=== PATIENT | female | born 1980 | race Caucasian/White ===

== ENCOUNTER 2017-12-11 14:40 | Inpatient (IN) | payer OTHER ==
[~2017-12-11] VITALS: Ht 160 cm; Wt 100.0 kg
[2017-12-11 15:13] LABS: BASOPHIL % 0.1 % (0-2); PLATELET COUNT 323 x10^3mcL (130-400); RED CELL DISTRIBUTION WIDTH 14.2 % (11.5-14.5)
[2017-12-11 15:25] LABS: CALCIUM 8.9 mg/dL (8.5-10.1); CARBON DIOXIDE 23.9 mmol/L (21-32); CHLORIDE SERUM 101 mmol/L (98-107); CREATININE SERUM 0.8 mg/dL (0.6-1.0); GFR1 > 60 mL/min; GLUCOSE SERUM 124 mg/dL (74-106); POTASSIUM SERUM 3.4 mmol/L (3.5-5.1); SODIUM SERUM 135 mmol/L (136-145)
[2017-12-11 15:31] LABS: ALKALINE PHOSPHATASE 174 U/L (46-116); ALT/SGPT 191 U/L (14-59); AST/SGOT 121 U/L (15-37); BILIRUBIN TOTAL 3.5 mg/dL (0.20-1.00); TOTAL PROTEIN, SERUM 7.8 g/dL (6.4-8.2)
[2017-12-11 15:32] LABS: ALBUMIN 3.2 g/dL (3.4-5.0)
[2017-12-11 16:31] LABS: LIPASE 18392 IU/L (73-393)
[2017-12-11] MEDS ORDERED: PROTONIX20 MG (16:56)
[2017-12-11] MEDS ORDERED: HCTZ/LISINOPRIL1 TAB (16:58)
[2017-12-11 17:28] LABS: MAGNESIUM 2.3 mg/dL (1.8-2.4); PHOSPHOROUS 2.9 mg/dL (2.5-4.9)
[2017-12-11 17:29] LABS: CHOLESTEROL/HDL RATIO 6.4
[2017-12-11 17:49] LABS: T3 TOTAL 1.97 ng/mL
[2017-12-11 17:53] LABS: FREE T4 1.17 ng/dL (0.76-1.46); FREE THYROXINE INDEX 3.4 ug/dL (1.4-4.5)
[2017-12-11 18:26] VITALS: BP 177/110
[2017-12-11 20:40] VITALS: BP 142/88
[2017-12-12] VITALS (7 sets, daily range): BP systolic 113–193; BP diastolic 72–118
[2017-12-12 00:23] LABS: UA SPECIFIC GRAVITY 1.025 (1.005-1.035); microscopic required? YES; urine erythrocyte 1+ (NEGATIVE)
[2017-12-12 06:23] LABS: BASOPHIL % 0.4 % (0-2); PLATELET COUNT 332 x10^3mcL (130-400)
[2017-12-12 06:54] LABS: ALKALINE PHOSPHATASE 204 U/L (46-116); ALT/SGPT 223 U/L (14-59); AST/SGOT 145 U/L (15-37); BILIRUBIN TOTAL 6.3 mg/dL (0.20-1.00); CALCIUM 8.6 mg/dL (8.5-10.1); CARBON DIOXIDE 22.1 mmol/L (21-32); CHLORIDE SERUM 98 mmol/L (98-107); CREATININE SERUM 0.7 mg/dL (0.6-1.0); GFR1 > 60 mL/min; GLUCOSE SERUM 201 mg/dL (74-106); MAGNESIUM 2.4 mg/dL (1.8-2.4); PHOSPHOROUS 2.3 mg/dL (2.5-4.9); POTASSIUM SERUM 3.1 mmol/L (3.5-5.1); SODIUM SERUM 133 mmol/L (136-145)
[2017-12-12 07:04] LABS: RED CELL DISTRIBUTION WIDTH 14.8 % (11.5-14.5)
[2017-12-12 07:14] LABS: ALBUMIN 3.2 g/dL (3.4-5.0)
[2017-12-12 07:35] LABS: LIPASE 7021 IU/L (73-393)
[2017-12-13 05:27] VITALS: BP 118/74
[2017-12-13 06:37] LABS: ALKALINE PHOSPHATASE 242 U/L (46-116); ALT/SGPT 177 U/L (14-59); AST/SGOT 99 U/L (15-37); BILIRUBIN TOTAL 6.58 mg/dL (0.20-1.00); CALCIUM 8.2 mg/dL (8.5-10.1); CARBON DIOXIDE 20.3 mmol/L (21-32); CHLORIDE SERUM 102 mmol/L (98-107); CREATININE SERUM 0.8 mg/dL (0.6-1.0); GFR1 > 60 mL/min; GLUCOSE SERUM 110 mg/dL (74-106); LACTIC DEHYDROGENASE (LDH) 165 U/L (100-190); MAGNESIUM 2.1 mg/dL (1.8-2.4); PHOSPHOROUS 1.9 mg/dL (2.5-4.9); SODIUM SERUM 139 mmol/L (136-145); TOTAL PROTEIN, SERUM 6.9 g/dL (6.4-8.2)
[2017-12-13 06:56] LABS: ALBUMIN 2.6 g/dL (3.4-5.0)
[2017-12-13 06:57] LABS: POTASSIUM SERUM 2.9 mmol/L (3.5-5.1)
[2017-12-13 07:18] LABS: BASOPHIL % 0 % (0-2); PLATELET COUNT 323 x10^3mcL (130-400); RED CELL DISTRIBUTION WIDTH 14.8 % (11.5-14.5)
[2017-12-13 09:40] VITALS: BP 148/79
[2017-12-13 09:51] LABS: CALCIUM 8.7 mg/dL (8.5-10.1); CARBON DIOXIDE 24.4 mmol/L (21-32); CHLORIDE SERUM 98 mmol/L (98-107); GFR1 > 60 mL/min; GLUCOSE SERUM 115 mg/dL (74-106); POTASSIUM SERUM 3.2 mmol/L (3.5-5.1); SODIUM SERUM 134 mmol/L (136-145)
[2017-12-13 15:33] VITALS: BP 144/81
[2017-12-13 17:15] VITALS: BP 148/93
[2017-12-13 20:21] VITALS: BP 140/86
[2017-12-14 05:56] VITALS: BP 158/89
[2017-12-14 06:38] LABS: ALKALINE PHOSPHATASE 279 U/L (46-116); ALT/SGPT 148 U/L (14-59); AST/SGOT 91 U/L (15-37); BILIRUBIN TOTAL 4.94 mg/dL (0.20-1.00); CALCIUM 8.3 mg/dL (8.5-10.1); CARBON DIOXIDE 26.3 mmol/L (21-32); CHLORIDE SERUM 104 mmol/L (98-107); CREATININE SERUM 0.7 mg/dL (0.6-1.0); GFR1 > 60 mL/min; GLUCOSE SERUM 118 mg/dL (74-106); MAGNESIUM 1.9 mg/dL (1.8-2.4); PHOSPHOROUS 1.4 mg/dL (2.5-4.9); SODIUM SERUM 141 mmol/L (136-145); TOTAL PROTEIN, SERUM 6.8 g/dL (6.4-8.2)
[2017-12-14 06:41] LABS: ALBUMIN 2.4 g/dL (3.4-5.0); POTASSIUM SERUM 2.9 mmol/L (3.5-5.1)
[2017-12-14 07:03] LABS: PLATELET COUNT 319 x10^3mcL (130-400)
[2017-12-14 07:17] LABS: LIPASE 3841 IU/L (73-393)
[2017-12-14 07:48] LABS: RED CELL DISTRIBUTION WIDTH 15.2 % (11.5-14.5)
[2017-12-14 08:59] VITALS: BP 163/105
[2017-12-14] MEDS ORDERED: HYZAAR1 TAB PO (09:50)
[2017-12-14] MEDS ORDERED: LOSARTAN POTASS1 TAB PO (09:54)
[2017-12-14 13:33] LABS: MONOCYTE 9 % (0-7); PLATELET MORPHOLOGY PLATELETS NORMAL; SEGMENTED NEUTROPHILS 74 % (37-75); rbc morphology (normal/abnorm) NORMAL (NORMAL)
[2017-12-14 17:11] VITALS: BP 160/104
[2017-12-14 21:11] VITALS: BP 134/94
[2017-12-14 21:48] VITALS: BP 145/94
[2017-12-15 06:05] VITALS: BP 152/103
[2017-12-15 06:30] LABS: BASOPHIL % 0.4 % (0-2); PLATELET COUNT 340 x10^3mcL (130-400)
[2017-12-15 06:53] LABS: RED CELL DISTRIBUTION WIDTH 15.2 % (11.5-14.5)
[2017-12-15 07:25] LABS: ALKALINE PHOSPHATASE 278 U/L (46-116); ALT/SGPT 129 U/L (14-59); AST/SGOT 68 U/L (15-37); BILIRUBIN DIRECT 1.04 mg/dL (0.0-0.2); BILIRUBIN TOTAL 2.43 mg/dL (0.20-1.00); CALCIUM 8.5 mg/dL (8.5-10.1); CARBON DIOXIDE 24.6 mmol/L (21-32); CHLORIDE SERUM 102 mmol/L (98-107); CREATININE SERUM 0.7 mg/dL (0.6-1.0); GFR1 > 60 mL/min; GLUCOSE SERUM 95 mg/dL (74-106); POTASSIUM SERUM 3.3 mmol/L (3.5-5.1); SODIUM SERUM 138 mmol/L (136-145); TOTAL PROTEIN, SERUM 7.1 g/dL (6.4-8.2)
[2017-12-15 07:27] LABS: ALBUMIN 2.3 g/dL (3.4-5.0)
[2017-12-15 09:29] VITALS: BP 143/101
[2017-12-15 16:29] VITALS: BP 162/111
[2017-12-15 20:46] VITALS: BP 165/106
[2017-12-15 22:00] VITALS: BP 151/100
[2017-12-16 00:01] VITALS: BP 145/97
[2017-12-16 04:12] VITALS: BP 158/106
[2017-12-16 05:49] VITALS: BP 140/90
[2017-12-16 06:11] LABS: PLATELET COUNT 388 x10^3mcL (130-400)
[2017-12-16 06:17] VITALS: BP 140/90
[2017-12-16 06:48] LABS: RED CELL DISTRIBUTION WIDTH 15.4 % (11.5-14.5)
[2017-12-16 06:49] LABS: CALCIUM 8.8 mg/dL (8.5-10.1); CARBON DIOXIDE 25.6 mmol/L (21-32); CHLORIDE SERUM 102 mmol/L (98-107); CREATININE SERUM 0.9 mg/dL (0.6-1.0); GFR1 > 60 mL/min; GLUCOSE SERUM 91 mg/dL (74-106); POTASSIUM SERUM 3.8 mmol/L (3.5-5.1); SODIUM SERUM 135 mmol/L (136-145)
[2017-12-16 14:34] LABS: BAND NEUTROPHIL 0 % (0-10); MONOCYTE 9 % (0-7); SEGMENTED NEUTROPHILS 87 % (37-75)
[2017-12-16 14:35] LABS: ATYPICAL LYMPH 1 %; PLATELET MORPHOLOGY PLATELETS NORMAL; rbc morphology (normal/abnorm) NORMAL (NORMAL)
[2017-12-16 17:24] VITALS: BP 106/59
[2017-12-16 20:07] VITALS: BP 112/73
[2017-12-17 05:46] VITALS: BP 131/68
[2017-12-17 06:26] LABS: PLATELET COUNT 335 x10^3mcL (130-400)
[2017-12-17 06:30] LABS: RED CELL DISTRIBUTION WIDTH 15.2 % (11.5-14.5)
[2017-12-17 06:59] LABS: ALKALINE PHOSPHATASE 156 U/L (46-116); ALT/SGPT 134 U/L (14-59); AST/SGOT 106 U/L (15-37); BILIRUBIN DIRECT 0.44 mg/dL (0.0-0.2); BILIRUBIN TOTAL 0.94 mg/dL (0.20-1.00); CALCIUM 7.6 mg/dL (8.5-10.1); CARBON DIOXIDE 25.2 mmol/L (21-32); CHLORIDE SERUM 102 mmol/L (98-107); CREATININE SERUM 0.9 mg/dL (0.6-1.0); GFR1 > 60 mL/min; GLUCOSE SERUM 116 mg/dL (74-106); POTASSIUM SERUM 4.1 mmol/L (3.5-5.1); SODIUM SERUM 135 mmol/L (136-145)
[2017-12-17 07:26] LABS: ALBUMIN 1.8 g/dL (3.4-5.0)
[2017-12-17 09:30] LABS: ATYPICAL LYMPH 1 %; BAND NEUTROPHIL 0 % (0-10); BASOPHIL 0 % (0-2); MONOCYTE 7 % (0-7); PLATELET MORPHOLOGY PLATELETS INCREASED; SEGMENTED NEUTROPHILS 88 % (37-75); rbc morphology (normal/abnorm) ABNORMAL (NORMAL)
[2017-12-17 09:58] VITALS: BP 112/61
[2017-12-17 17:07] VITALS: BP 99/58
[2017-12-17 21:23] VITALS: BP 91/72
[2017-12-18 05:34] VITALS: BP 109/67
[2017-12-18 06:34] LABS: CALCIUM 8.1 mg/dL (8.5-10.1); CARBON DIOXIDE 24.6 mmol/L (21-32); CHLORIDE SERUM 102 mmol/L (98-107); CREATININE SERUM 0.7 mg/dL (0.6-1.0); GFR1 > 60 mL/min; GLUCOSE SERUM 109 mg/dL (74-106); SODIUM SERUM 135 mmol/L (136-145)
[2017-12-18 06:37] LABS: PLATELET COUNT 327 x10^3mcL (130-400)
[2017-12-18 07:59] LABS: RED CELL DISTRIBUTION WIDTH 15.9 % (11.5-14.5)
[2017-12-18 10:30] VITALS: BP 127/76
[2017-12-18] MEDS ORDERED: LOP50 PO (11:08)
[2017-12-18] MEDS ORDERED: ZES10 PO (11:09)
[2017-12-18] MEDS ORDERED: ACETAMINOPHEN-H1 TA1 PO (11:09)
[2017-12-18] MEDS ORDERED: LEVAQUIN750 MG PO (11:18)
[2017-12-18 11:31] VITALS: BP 127/76
[2017-12-18 14:10] LABS: ATYPICAL LYMPH 3 %; BAND NEUTROPHIL 0 % (0-10); BASOPHIL 0 % (0-2); MONOCYTE 11 % (0-7); SEGMENTED NEUTROPHILS 71 % (37-75)
[2017-12-18 14:11] LABS: PLATELET MORPHOLOGY PLATELETS NORMAL; rbc morphology (normal/abnorm) ABNORMAL (NORMAL)
== END 2017-12-18 14:30 | disposition home or self-care (01) | DRG 710 ==
LOC: ED 14:40 → MU 16:45
PROVIDERS: Anesthesiology; Emergency Medicine; Internal Medicine; Surgery
PROC: 0F798ZZ Dilation of Common Bile Duct, Via Natural or Artificial Opening Endoscopic (ICD-10-PCS; 2017-12-13)
PROC: 0FT40ZZ Resection of Gallbladder, Open Approach (ICD-10-PCS; 2017-12-16)
PROC: BF001ZZ Plain Radiography of Bile Ducts using Low Osmolar Contrast (ICD-10-PCS; 2017-12-16)
PROC: 0FJ44ZZ Inspection of Gallbladder, Percutaneous Endoscopic Approach (ICD-10-PCS; principal; 2017-12-16 08:00)
DX: A41.9 Sepsis, unspecified organism (principal); N17.0 Acute kidney failure with tubular necrosis; K80.62 Calculus of gallbladder and bile duct with acute cholecystitis without obstruction; K85.10 Biliary acute pancreatitis without necrosis or infection; E44.0 Moderate protein-calorie malnutrition; E83.39 Other disorders of phosphorus metabolism; E87.1 Hypo-osmolality and hyponatremia; I16.0 Hypertensive urgency; N39.0 Urinary tract infection, site not specified; E87.6 Hypokalemia; E78.5 Hyperlipidemia, unspecified; R74.0 Nonspecific elevation of levels of transaminase and lactic acid dehydrogenase [LDH]; E66.9 Obesity, unspecified; Z68.39 Body mass index [BMI] 39.0-39.9, adult
CPT/HCPCS: 43262; 74181; 84439; C1769; C1887; C9113; J0360; J1170; J1610; J1885; J1940; J2250; J2270; J2405; J2543; J3010; J3480; J3490; J7030; J7120; Q0092; Q9967

== ENCOUNTER 2019-03-03 21:43 | Emergency (ER) | payer OTHER ==
[~2019-03-03] VITALS: Ht 160 cm; Wt 108.0 kg
[~2019-03-03 21:43] MED LIST: ACETAMINOPHEN-H1 TA1 PO; HCTZ/LISINOPRIL1 TAB; HYZAAR1 TAB PO; LEVAQUIN750 MG PO; LOP50 PO; LOSARTAN POTASS1 TAB PO; PROTONIX20 MG; ZES10 PO
[2019-03-03 21:48] VITALS: Ht 160 cm; Wt 108.0 kg
[2019-03-03 22:37] LABS: PLATELET COUNT 352 x10^3mcL (130-400); RED CELL DISTRIBUTION WIDTH 14.2 % (11.5-14.5)
[2019-03-03 22:56] LABS: ALBUMIN 3.5 g/dL (3.4-5.0); CARBON DIOXIDE 28.8 mmol/L (21-32); CHLORIDE SERUM 105 mmol/L (98-107); CREATININE SERUM 0.9 mg/dL (0.6-1.0); GFR1 > 60 mL/min; GLUCOSE SERUM 102 mg/dL (74-106); POTASSIUM SERUM 3.8 mmol/L (3.5-5.1); SODIUM SERUM 141 mmol/L (136-145); TOTAL PROTEIN, SERUM 7.7 g/dL (6.4-8.2)
[2019-03-03 22:57] LABS: ALKALINE PHOSPHATASE 107 U/L (46-116); ALT/SGPT 59 U/L (14-59); AST/SGOT 22 U/L (15-37); BILIRUBIN TOTAL 0.5 mg/dL (0.20-1.00)
[2019-03-04 04:13] VITALS: BP 134/91
== END 2019-03-04 04:13 | disposition home or self-care (01) ==
LOC: ED 21:43
PROVIDERS: Emergency Medicine
DX: R07.89 Other chest pain (principal); R42 Dizziness and giddiness; R11.0 Nausea; I10 Essential (primary) hypertension; E78.00 Pure hypercholesterolemia, unspecified; Z85.42 Personal history of malignant neoplasm of other parts of uterus
CPT/HCPCS: 85378; J1885; Q9967